=== PATIENT | female | born 1965 | race Two or more races ===

== ENCOUNTER 2017-10-28 19:30 | Emergency (ER) | payer SELFPAY ==
[~2017-10-28] VITALS: Ht 165.1 cm; Wt 65.8 kg
--- NOTE | 2017-10-28 19:30 | NUR ---
BB [id number] C/O GLF WITH LEFT WRIST DEFORMITY. ADMITTED TO ETOH DRINKING A BOTTLE OF TEQUILA. A/OX3 VSS NAD WILL CONTINUE TO MONITOR FOR ANY CHANGES DURING THE SHIFT.
--- NOTE | 2017-10-28 19:34 | NUR ---
ER MD MILLARD AT BEDSIDE
[2017-10-28] MEDS ORDERED: IBUPROFEN 600 MG TABLET PO ONE ×2 (20:00→20:17)
[2017-10-28 20:13] LABS: BASOPHILS % (AUTO) 0.6 % (0.0-2.0); EOSINOPHILS % (AUTO) 0.1 % (0.0-6.0); HEMATOCRIT 43 % (33-45); HEMOGLOBIN 14.8 g/dL (11.5-14.8); LYMPHOCYTES # (AUTO) 2.4 /CMM (0.8-4.8); LYMPHOCYTES % (AUTO) 33.3 % (20.0-44.0); MEAN CORPUSCULAR HGB CONC 35 g/dl (31.0-36.0); MEAN CORPUSCULAR VOLUME 89 fL (82-100); MONOCYTES # (AUTO) 0.3 /CMM (0.1-1.30); MONOCYTES % (AUTO) 3.5 % (2.0-12.0); NEUTROPHILS # (AUTO) 4.6 /CMM (1.8-8.9); NEUTROPHILS % (AUTO) 62.5 % (43.0-81.0); PLATELET COUNT (AUTO) 248 /CMM (150-450); RDW COEFFICIENT OF VARIATION 12.2 (11.5-15.0); RED BLOOD CELL COUNT(AUTO) 4.83 MIL/uL (4.0-5.2); WHITE BLOOD COUNT (AUTO) 7.3 K/uL (4.3-11.0)
--- NOTE | 2017-10-28 20:15 | NUR ---
ATTEMPTED TO GET URINE SAMPLE. PT HAD CUP IN POSESSION BUT DID NOT USE IT
--- NOTE | 2017-10-28 20:22 | NUR ---
[employer] RENTAL CLERK ATTEMPTED XRAY BUT PT WAS NOT COOPERATING. WILL ATTEMPT AGAIN IN 15-20 MIN
[2017-10-28 20:38] LABS: CALCIUM, SERUM 8.4 mg/dL (8.5-10.1); CARBON DIOXIDE 24 mmol/L (21-32); CHLORIDE 103 mmol/L (98-107); CREATININE 0.6 mg/dL (0.6-1.3); GLUCOSE 134 mg/dL (74-106); POTASSIUM 3.8 mmol/L (3.5-5.1); SODIUM SERUM 139 mmol/L (136-145); UREA NITROGEN, BLOOD 12 mg/dL (7-18)
[2017-10-28 20:46] LABS: ALANINE AMINOTRANSFERASE 65 U/L (12-78); ALBUMIN 4.2 g/dL (3.4-5.0); ALCOHOL, BLOOD 363 mg/dL (0-0); ALKALINE PHOSPHATASE 142 U/L (46-116); ASPARTATE AMINOTRANSFERASE 36 U/L (15-37); BILIRUBIN,DIRECT 0.1 mg/dL (0.0-0.2); BILIRUBIN,TOTAL 0.4 mg/dL (0.2-1.0); TOTAL PROTEIN, SERUM 8.6 g/dL (6.4-8.2)
[2017-10-28 20:50] LABS: SALICYLATE 1.2 mg/dL (2.8-20.0)
[2017-10-28 20:51] LABS: ACETAMINOPHEN < 2 ug/ml (10-30)
--- NOTE | 2017-10-28 23:36 | NUR ---
PT SLEEPING IN BED. VSS NAD
--- NOTE | 2017-10-29 01:46 | NUR ---
PT AWAKE AND ALERT AND AMBULATORY WITH STEADY GAIT. PT ADMITS TO DRINKING ALCOHOL AND STATES THAT SHE DRINKS BECAUSE SHE IS SAD. PT HOWEVER DENIES AND SUICIDAL IDEATION OR HOMICIDAL IDEATION. PT CALM AND COOPERATIVE AND PROVIDED WITH FOOD AND DRINK. DR BERG NOTIFIED.
[2017-10-29 05:30] VITALS: BP 150/78
== END 2017-10-29 05:30 | disposition home or self-care (01) ==
LOC: ER 19:38
DX: S52.612A Displaced fracture of left ulna styloid process, initial encounter for closed fracture (principal); S52.592A Other fractures of lower end of left radius, initial encounter for closed fracture; R45.851 Suicidal ideations; F10.10 Alcohol abuse, uncomplicated; W18.39XA Other fall on same level, initial encounter; Y93.89 Activity, other specified; Y92.89 Other specified places as the place of occurrence of the external cause; Y99.8 Other external cause status
CPT/HCPCS: 36415; 73110; 80048-TC; 80076-TC; 84703-TC; 85025-TC; A4606; G0480; Z7610